=== PATIENT | female | born 2000 | race Caucasian/White ===

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

== ENCOUNTER → 2021-07-30 | Outpatient (CLI) | payer OTHER | LOC: COL.RAD 09:58 | DX: Z02.71 Encounter for disability determination (principal); M51.46 Schmorl's nodes, lumbar region; M51.36 Other intervertebral disc degeneration, lumbar region ==

== ENCOUNTER 2022-06-02 05:23 | Day surgery (SDC) | payer SELFPAY ==
[2022-06-02] VITALS (10 sets, daily range): BP systolic 118–136; BP diastolic 70–83; PULSE 66–89; TEMP 97.5–98.2
[~2022-06-02] VITALS: Ht 170.2 cm; Wt 104.5 kg
[~2022-06-02 05:23] MED LIST changes: +PERCOCET 325 MG1 TA2 PO; +WELLBUTRIN XL300 M1 PO; +ZOFRAN ODT4 MG PO
[2022-06-02] MEDS ORDERED: BUSPAR10 MG PO (07:57)
[2022-06-02] MEDS ORDERED: IRON 27 MG PO (07:58)
[2022-06-02] MEDS ORDERED: VITAMIN D31000 I1 PO (07:58)
[2022-06-02] MEDS ORDERED: NORCO 325 MG-51 TAB PO (09:38)
--- NOTE | 2022-06-02 10:10 | NUR ---
Patient returns to room 2 per cart accompanied by Carina BARRY and is arouses to verbal stimuli. Temp 97.9 and room air sats 100%. Incisions X4 covered with skin glue. Wound edges well approximated. IV fluids infusing. Siderails up x2 and allowed to rest.
--- NOTE | 2022-06-02 10:25 | NUR ---
Resting and not disturbed.
--- NOTE | 2022-06-02 10:40 | NUR ---
Continues to rest and no complaints.
--- NOTE | 2022-06-02 10:55 | NUR ---
Continues to rest without complaints.
--- NOTE | 2022-06-02 11:10 | NUR ---
Resting and denies pain or nausa.
--- NOTE | 2022-06-02 11:40 | NUR ---
Continues to rest without complaints.
--- NOTE | 2022-06-02 12:10 | NUR ---
More awake now and is having right upper quadrant discomfort.
--- NOTE | 2022-06-02 12:13 | NUR ---
Awake and complaining of pain at 9/10. Medicated with the [place] 5mg tab. Tolerated crackers and Sprite.
--- NOTE | 2022-06-02 13:00 | NUR ---
States that the [place] was effective for the pain.
--- NOTE | 2022-06-02 13:04 | NUR ---
IV to INT and assisted up to the bathroom. Gait steady and denies nausea or pain with movement.
--- NOTE | 2022-06-02 13:30 | NUR ---
INT discontinued and site is free of redness or swelling. Patient dresses self. Ride has been notified. Dismissal instructions reviewed. Patient voices understanding of these. Script for pain medication is ready for pickup at [facility].
--- NOTE | 2022-06-02 13:53 | NUR ---
Patient discharged to home driven by mother and taken to vehicle per wheelchair and discharged to home with instructions in hand.
== END 2022-06-02 13:53 | disposition home or self-care (01) ==
LOC: SDCO 05:23
DX: K80.12 Calculus of gallbladder with acute and chronic cholecystitis without obstruction (principal)
CPT/HCPCS: J0690; J1100; J1885; J2405; J2704; J3010; J7120

== ENCOUNTER 2022-11-22 14:50 | Emergency (ER) | payer SELFPAY ==
[~2022-11-22] VITALS: Ht 170.2 cm; Wt 90.9 kg
[~2022-11-22 14:50] MED LIST changes: +BUSPAR10 MG PO; +IRON 27 MG PO; +NORCO 325 MG-51 TAB PO; +VITAMIN D31000 I1 PO
[2022-11-22 14:58] VITALS: BP 139/100
[2022-11-22 15:45] LABS: STREP SCREEN NEGATIVE
[2022-11-22 17:49] VITALS: PULSE 71; TEMP 98
== END 2022-11-22 17:51 | disposition home or self-care (01) ==
LOC: COL.ER 14:50
PROVIDERS: Nurse Practitioner
DX: B34.9 Viral infection, unspecified (principal); R51.9 Headache, unspecified; R05.9 Cough, unspecified; R53.81 Other malaise; Z20.822 Contact with and (suspected) exposure to COVID-19